=== PATIENT | male | born 1960 | race Caucasian/White ===

== ENCOUNTER 2018-01-07 08:36 | Outpatient (RCR) | payer OTHER, SELFPAY ==
--- NOTE | 2018-01-08 13:22 | PT.OIE ---
Current Diagnoses Pain, unspecified (01/07/18) Provider Visit Care Team Role Provider Type Madison Maurice MD Attending Provider Non-Staff Family Provider Primary Care Provider Specialty: Family Practice Address: [address] [place] [address], [id number] Email: Physical Therapy Initial Evaluation PT-OP-A Visit Information Start: 01/08/18 12:27 Freq: Status: Active Protocol: Document 01/07/18 09:28 [facility] (Rec: 01/08/18 13:22 [facility] [id number]) Out-Patient Physical Therapy Visit Information Visit Information Visit Type Initial Evaluation Visit Start Time 09:00 Visit Stop Time 09:55 Total Visit Minutes 55 Visit Number 1 Number of PERSONAL LINES SALES REP Visits 0 Evaluation Information Evaluation Date 01/07/18 PT-OP-B Current Condition Start: 01/08/18 12:27 Freq: Status: Active Protocol: Document 01/07/18 09:28 [facility] (Rec: 01/08/18 13:22 [facility] [id number]) Current Condition History of Current Condition Current Complaints bilateral first CMC/thumb pain History of Current Condition Patient reports he has had problems with his wrists and thumbs for years due to 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 At this time he c/o severe and worsening bilateral pain in CMC regions at 9/10 pain level which limits his ability to do activities in the home and severely interrupts his sleep. 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 Has had some prior PT, has not worn a brace except immediately after surgery. Patient is disabled. Prior Treatments and Tests x-ray 08/31/17 shows bilateral first CMC OA with joint space narrowing, osteophytosis, on the right side subchondral cyst formation and sclerosis. On the right there is mild widening of the scappolunate joint. Prior carpal tunnel release left and SGW on right wrist. Treatment Goals Patient/Caregiver Goals Decrease pain, be able to sleep, improve activity tolerance. Prior Functional Status Baseline Function- ADL's Independent Current Functional Impairments (Reported) Functional Limitations- Other severe difficulty opening tight jar, carrying groceries, doing yardwork or physical activities of caregiving. Personal Factors Other Personal Factors That May Effect PMH: IBS, testicular lymphoma, Therapy/Recovery anxiety, history of ETOH abuse (sober 1 year) PT-OP-C Subjective Start: 01/08/18 12:27 Freq: Status: Active Protocol: Document 01/07/18 09:28 [facility] (Rec: 01/08/18 13:22 [facility] [id number]) Patient Questionnaires Quick Dash- Upper Extremity Quick Dash UE Impairment 40 to 59% Impaired (Score 40- 59) OP-PT Pain Assessment Pain Assessment Grid Paper Pain Assessment Grid Completed Yes Location Bilateral Wrist Pain Location Details bilateral CMC joints Intensity 9 Scale Used Numeric (1 - 10) Description Aching Burning Throbbing With Movement Frequency Constant Pain Aggravating Factors Activity Lifting Pain Alleviating Factors None Home Pain Medication Use Pain Medications Used No: Reports no longer taking narcotics because he doesn't tolerate them. Pain Behaviors Pain Behaviors Facial Grimacing Guarding Holding Area Wincing PT-OP-F Manual Assessment Start: 01/08/18 12:27 Freq: Status: Active Protocol: Document 01/07/18 09:28 [facility] (Rec: 01/08/18 13:22 [facility] [id number]) Manual Assessments Joint Mobility Assessment Joint Mobility Assessment Joint mobility at bilater CMC joints causes pain; difficult to assess but appears moderately restricted PT-OP-H Neuro Start: 01/08/18 12:27 Freq: Status: Active Protocol: Document 01/07/18 09:28 [facility] (Rec: 01/08/18 13:22 [facility] [id number]) Sensation Evaluation Gross Sensation Gross Sensation Left UE Impaired Right UE Impaired Sensation Description Tingling PT-OP-J Posture/Palpation/Skin Start: 01/08/18 12:27 Freq: Status: Active Protocol: Document 01/07/18 09:28 [facility] (Rec: 01/08/18 13:22 [facility] [id number]) Posture Evaluation Position Sitting Head/C-Spine Posture Flexed Forward Head T-Spine Posture Increased Kyphosis L-Spine Posture Flattened Shoulder Posture (L) Rounded (R) Rounded Palpation Assessment Location One Palpation Location bilateral CMC Palpation Findings Muscle Guarding Tenderness Palpation Details no redness or increased warmth . Patient reports bilateral edema PT-OP-K Range of Motion Start: 01/08/18 12:27 Freq: Status: Active Protocol: Document 01/07/18 09:28 [facility] (Rec: 01/08/18 13:22 [facility] [id number]) Cervical Spine Range of Motion Cervical Spine Active Testing Position Sitting Flexion 60 Extension 40 Rotation Left 48 Rotation Right 60 Lateral Flexion Left 35 Lateral Flexion Right 35 ROM Limitations Soft Tissue Tightness Shoulder Goniometric Range of Motion Shoulder ROM Limitations Comments bilateral shoulders WNL Elbow/Forearm Range of Motion Elbow/Forearm ROM Limitations Comments bilateral elbows and forearms WNL except left supination limited to 65 degrees Wrist Goniometric Range of Motion Wrist Measured in Degrees Right Wrist ROM WFL No Flexion Active (degrees) 45 Flexion Passive (degrees) 58 Extension Active (degrees) 50 Extension Passive (degrees) 55 Ulnar Deviation Active (degrees) 7 Ulnar Deviation Passive (degrees) 8 Radial Deviation Active (degrees) 5 Radial Deviation Passive (degrees) 7 Left Wrist ROM WFL No Flexion Active (degrees) 43 Flexion Passive (degrees) 60 Extension Active (degrees) 51 Extension Passive (degrees) 58 Ulnar Deviation Active (degrees) 9 Ulnar Deviation Passive (degrees) 11 Radial Deviation Active (degrees) 6 Radial Deviation Passive (degrees) 8 ROM Limitations Wrist Limitations of Range of Motion Pain Comments Patient c/o pain all wrist motions bilaterally Finger Goniometric Range of Motion Finger ROM Limitations Comments finger ROM WFL Thumb Goniometric Range of Motion Thumb Measured in Degrees Left Thumb ROM WFL No CMC Flexion Active (degrees) 22 CMC Flexion Passive (degrees) 25 CMC Extension Active (degrees) 16 CMC Extension Passive (degrees) 19 Right Thumb ROM WFL No CMC Flexion Active (degrees) 20 CMC Flexion Passive (degrees) 25 CMC Extension Active (degrees) 14 CMC Extension Passive (degrees) 17 Thumb ROM Limitations Thumb Range of Motion Limitations Pain Comments Audible popping with movement of CMC joint right greater than left PT-OP-M Strength Start: 01/08/18 12:27 Freq: Status: Active Protocol: Document 01/07/18 09:28 [facility] (Rec: 01/08/18 13:22 [facility] [id number]) Finger/Thumb Strength Finger Manual Muscle Testing Left Thumb Flexion (fingers C8) 3+ Fair+ Extension (thumb C8) 3+ Fair+ Adduction 4- Good- Abduction (fingers T1) 3+ Fair+ Comments painful Right Thumb Flexion (fingers C8) 3+ Fair+ Extension (thumb C8) 3+ Fair+ Adduction 4- Good- Abduction (fingers T1) 3+ Fair+ Comments painful Hand Meters Superintendent/Pinch Strength Hand Dominance Hand Dominance Mixed Hand Strength Right Meters Superintendent (lbs) 83 Left Meters Superintendent (lbs) 80 Wrist Strength Wrist Manual Muscle Testing Right Flexion (C7) 4+ Good+ Extension (C6) 4+ Good+ Comments painful Left Flexion (C7) 4+ Good+ Extension (C6) 4+ Good+ Comments painful PT-OP-Q Treatments Start: 01/08/18 12:27 Freq: Status: Active Protocol: Document 01/07/18 09:28 [facility] (Rec: 01/08/18 13:22 [facility] [id number]) Self-Care/Home Management Treatment Activities Self-Care/Home Management Activities instructed in importance of postural alignment, frequent gentle stretching of hands/ wrists into extension due to activities throughout the day overusing flexion movement. Instructed to ice after activity PT-OP-R Modalities Start: 01/08/18 12:27 Freq: Status: Active Protocol: Document 01/07/18 09:28 [facility] (Rec: 01/08/18 13:22 [facility] [id number]) Hot Pack/Cold Pack Treatment Cold Pack Location bilateral wrists and thumbs Patient Position Sitting Treatment Duration (minutes) 10 Patient Tolerance Good Ultrasound Therapy Treatment Right Thumb Treatment Duration (minutes) 8 Patient Position Sitting Coupling Medium Ultrasound Gel Applicator Size (cm2) 2 Frequency Setting (mHz) 3 Mode Setting Pulsed Duty Cycle 50% Left Thumb Treatment Duration (minutes) 8 Patient Position Sitting Coupling Medium Ultrasound Gel Applicator Size (cm2) 2 Frequency Setting (mHz) 3 Mode Setting Pulsed Duty Cycle 50% Intensity Setting (w/cm2) 1.0 PT-OP-T Assessment and Plan Start: 01/08/18 12:27 Freq: Status: Active Protocol: Document 01/07/18 09:28 [facility] (Rec: 01/08/18 13:22 [facility] [id number]) Physical Therapy Assessment Rehab Potential Rehabilitation Potential Fair Evaluation Complexity Number of Personal Factors/Comorbidities 3 or More Number of Body Systems Impaired 3 Clinical Presentation at Evaluation Evolving Impairments Impairments Activity Tolerance Pain ROM Strength Goals Four Impairment ROM Edge Worker Goal (LTG) bilateral CMC joints WNL with minimal to no increase in pain LTG Duration 12 wks Three Impairment Strength Short Term Goal (STG) Improve sloop captain strength bilaterally to 90 lbs STG Duration 6 wks Edge Worker Goal (LTG) Improve sloop captain strength bilaterally to 100 lbs LTG Duration 12 wks Two Impairment pain Short Term Goal (STG) Patient to report decrease in pain to 7/10 STG Duration 6 wks Edge Worker Goal (LTG) Patient to report decrease in pain to 4/10 LTG Duration 12 wks One Impairment Activity tolerance Short Term Goal (STG) Patient to report decrease in QuickDash score to 40% including increased ability to do daily caregiving tasks and yardwork, and improved sleep STG Duration 6 wks Long-Term Goal (LTG) Patient to report decrease in Quickdash score to no more than 25% LTG Duration 12 wks Physical Therapy Plan Frequency and Duration Frequency of Treatment 2x/Week Duration of Treatment 3 months Plan of Care Start Date 01/07/18 Plan of Care End Date 04/08/18 Therapeutic Interventions Therapeutic Interventions Home Exercise Program Patient/Caregiver Education Self-Care/Home Management Soft Tissue Mobilization Therapeutic Activities Therapeutic Exercises Modalities Cold Pack/Ice Massage Iontophoresis Paraffin Bath Ultrasound Next Visit Focus/Plan Next Note Type Treatment Note Next Visit Plan Initiate iontophoresis with Dexamethasone 4mg/ml
--- NOTE | 2018-01-10 15:29 | PT.OPPOC ---
Current Diagnoses Pain, unspecified (01/07/18) Provider Visit Care Team Role Provider Type Madison Maurice MD Attending Provider Non-Staff Family Provider Primary Care Provider Specialty: Family Practice Address: [address] [place] [address], [id number] Email: Plan Of Care PT-OP-T Assessment and Plan Start: 01/08/18 12:27 Freq: Status: Active Protocol: Document 01/07/18 09:28 [facility] (Rec: 01/08/18 13:22 [facility] [id number]) Physical Therapy Assessment Rehab Potential Rehabilitation Potential Fair Evaluation Complexity Number of Personal Factors/Comorbidities 3 or More Number of Body Systems Impaired 3 Clinical Presentation at Evaluation Evolving Impairments Impairments Activity Tolerance Pain ROM Strength Goals Four Impairment ROM Deputy Probation Officer Goal (LTG) bilateral CMC joints WNL with minimal to no increase in pain LTG Duration 12 wks Three Impairment Strength Short Term Goal (STG) Improve credit resolution representative strength bilaterally to 90 lbs STG Duration 6 wks Deputy Probation Officer Goal (LTG) Improve credit resolution representative strength bilaterally to 100 lbs LTG Duration 12 wks Two Impairment pain Short Term Goal (STG) Patient to report decrease in pain to 7/10 STG Duration 6 wks Longterm Goal (LTG) Patient to report decrease in pain to 4/10 LTG Duration 12 wks One Impairment Activity tolerance Short Term Goal (STG) Patient to report decrease in QuickDash score to 40% including increased ability to do daily caregiving tasks and yardwork, and improved sleep STG Duration 6 wks Deputy Probation Officer Goal (LTG) Patient to report decrease in Quickdash score to no more than 25% LTG Duration 12 wks Physical Therapy Plan Frequency and Duration Frequency of Treatment 2x/Week Duration of Treatment 3 months Plan of Care Start Date 01/07/18 Plan of Care End Date 04/08/18 Therapeutic Interventions Therapeutic Interventions Home Exercise Program Patient/Caregiver Education Self-Care/Home Management Soft Tissue Mobilization Therapeutic Activities Therapeutic Exercises Modalities Cold Pack/Ice Massage Iontophoresis Paraffin Bath Ultrasound Next Visit Focus/Plan Next Note Type Treatment Note Next Visit Plan Initiate iontophoresis with Dexamethasone 4mg/ml Plan of Care Dates Plan of Care Start Date 01/07/18 Plan of Care End Date 04/08/18 Please Sign and Return: I have reviewed this Plan of Care and certify that the skilled therapy services above are required to meet the patient?s needs. Physician Signature Date Printed Name and Credentials Clinical Instructor Signature Printed Name and Credentials
--- NOTE | 2018-03-07 10:37 | PT.OPDS ---
Current Diagnoses Pain, unspecified (01/07/18) Provider Visit Care Team Role Provider Type Madison Maurice MD Attending Provider Non-Staff Family Provider Primary Care Provider Specialty: Family Practice Address: [address] [place] [address], [id number] Email: Visit Number Visit Number 1 Discharge Summary PT-OP-B Current Condition Start: 01/08/18 12:27 Freq: Status: Active Protocol: Document 01/07/18 09:28 [facility] (Rec: 01/08/18 13:22 [facility] [id number]) Current Condition History of Current Condition Current Complaints bilateral first CMC/thumb pain History of Current Condition Patient reports he has had problems with his wrists and thumbs for years due to 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 At this time he c/o severe and worsening bilateral pain in CMC regions at 9/10 pain level which limits his ability to do activities in the home and severely interrupts his sleep. 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 Has had some prior PT, has not worn a brace except immediately after surgery. Patient is disabled. Prior Treatments and Tests x-ray 08/31/17 shows bilateral first CMC OA with joint space narrowing, osteophytosis, on the right side subchondral cyst formation and sclerosis. On the right there is mild widening of the scappolunate joint. Prior carpal tunnel release left and SGW on right wrist. Treatment Goals Patient/Caregiver Goals Decrease pain, be able to sleep, improve activity tolerance. Prior Functional Status Baseline Function- ADL's Independent Current Functional Impairments (Reported) Functional Limitations- Other severe difficulty opening tight jar, carrying groceries, doing yardwork or physical activities of caregiving. Personal Factors Other Personal Factors That May Effect PMH: IBS, testicular lymphoma, Therapy/Recovery anxiety, history of ETOH abuse (sober 1 year) PT-OP-C Subjective Start: 01/08/18 12:27 Freq: Status: Active Protocol: Document 01/07/18 09:28 [facility] (Rec: 01/08/18 13:22 [facility] [id number]) Patient Questionnaires Quick Dash- Upper Extremity Quick Dash UE Impairment 40 to 59% Impaired (Score 40- 59) OP-PT Pain Assessment Pain Assessment Grid Paper Pain Assessment Grid Completed Yes Location Bilateral Wrist Pain Location Details bilateral CMC joints Intensity 9 Scale Used Numeric (1 - 10) Description Aching Burning Throbbing With Movement Frequency Constant Pain Aggravating Factors Activity Lifting Pain Alleviating Factors None Home Pain Medication Use Pain Medications Used No: Reports no longer taking narcotics because he doesn't tolerate them. Pain Behaviors Pain Behaviors Facial Grimacing Guarding Holding Area Wincing PT-OP-F Manual Assessment Start: 01/08/18 12:27 Freq: Status: Active Protocol: Document 01/07/18 09:28 [facility] (Rec: 01/08/18 13:22 [facility] [id number]) Manual Assessments Joint Mobility Assessment Joint Mobility Assessment Joint mobility at bilater CMC joints causes pain; difficult to assess but appears moderately restricted PT-OP-H Neuro Start: 01/08/18 12:27 Freq: Status: Active Protocol: Document 01/07/18 09:28 [facility] (Rec: 01/08/18 13:22 [facility] [id number]) Sensation Evaluation Gross Sensation Gross Sensation Left UE Impaired Right UE Impaired Sensation Description Tingling PT-OP-J Posture/Palpation/Skin Start: 01/08/18 12:27 Freq: Status: Active Protocol: Document 01/07/18 09:28 [facility] (Rec: 01/08/18 13:22 [facility] [id number]) Posture Evaluation Position Sitting Head/C-Spine Posture Flexed Forward Head T-Spine Posture Increased Kyphosis L-Spine Posture Flattened Shoulder Posture (L) Rounded (R) Rounded Palpation Assessment Location One Palpation Location bilateral CMC Palpation Findings Muscle Guarding Tenderness Palpation Details no redness or increased warmth . Patient reports bilateral edema PT-OP-K Range of Motion Start: 01/08/18 12:27 Freq: Status: Active Protocol: Document 01/07/18 09:28 [facility] (Rec: 01/08/18 13:22 [facility] [id number]) Cervical Spine Range of Motion Cervical Spine Active Testing Position Sitting Flexion 60 Extension 40 Rotation Left 48 Rotation Right 60 Lateral Flexion Left 35 Lateral Flexion Right 35 ROM Limitations Soft Tissue Tightness Shoulder Goniometric Range of Motion Shoulder ROM Limitations Comments bilateral shoulders WNL Elbow/Forearm Range of Motion Elbow/Forearm ROM Limitations Comments bilateral elbows and forearms WNL except left supination limited to 65 degrees Wrist Goniometric Range of Motion Wrist Measured in Degrees Right Wrist ROM WFL No Flexion Active (degrees) 45 Flexion Passive (degrees) 58 Extension Active (degrees) 50 Extension Passive (degrees) 55 Ulnar Deviation Active (degrees) 7 Ulnar Deviation Passive (degrees) 8 Radial Deviation Active (degrees) 5 Radial Deviation Passive (degrees) 7 Left Wrist ROM WFL No Flexion Active (degrees) 43 Flexion Passive (degrees) 60 Extension Active (degrees) 51 Extension Passive (degrees) 58 Ulnar Deviation Active (degrees) 9 Ulnar Deviation Passive (degrees) 11 Radial Deviation Active (degrees) 6 Radial Deviation Passive (degrees) 8 ROM Limitations Wrist Limitations of Range of Motion Pain Comments Patient c/o pain all wrist motions bilaterally Finger Goniometric Range of Motion Finger ROM Limitations Comments finger ROM WFL Thumb Goniometric Range of Motion Thumb Measured in Degrees Left Thumb ROM WFL No CMC Flexion Active (degrees) 22 CMC Flexion Passive (degrees) 25 CMC Extension Active (degrees) 16 CMC Extension Passive (degrees) 19 Right Thumb ROM WFL No CMC Flexion Active (degrees) 20 CMC Flexion Passive (degrees) 25 CMC Extension Active (degrees) 14 CMC Extension Passive (degrees) 17 Thumb ROM Limitations Thumb Range of Motion Limitations Pain Comments Audible popping with movement of CMC joint right greater than left PT-OP-M Strength Start: 01/08/18 12:27 Freq: Status: Active Protocol: Document 01/07/18 09:28 [facility] (Rec: 01/08/18 13:22 [facility] [id number]) Finger/Thumb Strength Finger Manual Muscle Testing Left Thumb Flexion (fingers C8) 3+ Fair+ Extension (thumb C8) 3+ Fair+ Adduction 4- Good- Abduction (fingers T1) 3+ Fair+ Comments painful Right Thumb Flexion (fingers C8) 3+ Fair+ Extension (thumb C8) 3+ Fair+ Adduction 4- Good- Abduction (fingers T1) 3+ Fair+ Comments painful Hand Buttermaker/Pinch Strength Hand Dominance Hand Dominance Mixed Hand Strength Right Buttermaker (lbs) 83 Left Buttermaker (lbs) 80 Wrist Strength Wrist Manual Muscle Testing Right Flexion (C7) 4+ Good+ Extension (C6) 4+ Good+ Comments painful Left Flexion (C7) 4+ Good+ Extension (C6) 4+ Good+ Comments painful PT-OP-T Assessment and Plan Start: 01/08/18 12:27 Freq: Status: Active Protocol: Document 03/07/18 10:36 [facility] (Rec: 03/07/18 10:37 [facility] [id number]) Physical Therapy Plan Discharge Physical Therapy Discharge Reasons No Longer Attending PT Discharge Comments Did not attend any physical therapy visits after initial evaluation 01/07/18
== END 2018-03-07 15:49 ==
LOC: PHYS 08:36
PROVIDERS: Family Provider Nutritionist; PCP Nutritionist; Visit Provider Nutritionist
DX: R52 Pain, unspecified (principal)
CPT/HCPCS: 97010; 97035; 97162